=== PATIENT | female | born 1985 | race Hispanic/Latino ===

== ENCOUNTER 2018-04-01 00:40 | Emergency (ER) | payer OTHER ==
--- NOTE | 2018-04-01 01:00 | C.PDOC ---
History Of Present Illness 32 year old female presents to the ER with a complaint of cough, congestion, and ear pain for the past few days. Patient states she recently traveled and while on the plane felt more severe pain on the left ear and feels like she cannot hear out of it. Denies fever. Time Seen by Provider: 04/01/18 00:52 Chief Complaint (Nursing): Flu-like Symptoms History Per: Patient History/Exam Limitations: no limitations Onset/Duration Of Symptoms: Days Current Symptoms Are (Timing): Still Present Location Of Pain: Ear(s) Sick Contacts (Context): None Associated Symptoms: Cough, Nasal Congestion. denies: Fever Ear Symptoms: Left: Ear Pain, Decreased Hearing Recent travel outside of the [place]: No Past Medical History Reviewed: Historical Data, Nursing Documentation, Vital Signs Vital Signs: Last Vital Signs Temp 98.9 F 04/01/18 00:48 Pulse 90 04/01/18 00:48 Resp 16 04/01/18 00:48 BP 130/70 04/01/18 00:48 Pulse Ox 96 04/01/18 00:48 Family History: States: Unknown Family Hx - Social History Hx Alcohol Use: No Hx Substance Use: No Review Of Systems Constitutional: Negative for: Fever ENT: Positive for: Ear Pain, Nose Congestion Respiratory: Positive for: Cough Gastrointestinal: Negative for: Vomiting Physical Exam - Physical Exam Appears: Non-toxic Skin: Normal Color, Warm, Dry Head: Atraumatic, Normacephalic Eye(s): bilateral: Normal Inspection Ear(s): Left: TM Erythema, Right: Normal Nose: Other (Congestion) Oral Mucosa: Moist Throat: Normal, No Erythema, No Exudate Neck: Normal, Supple Chest: Symmetrical, No Tenderness Cardiovascular: Rhythm Regular Respiratory: Normal Breath Sounds, No Rales, No Rhonchi, No Wheezing Gastrointestinal/Abdominal: Soft, No Tenderness Neurological/Psych: Oriented x3, Normal Speech ED Course And Treatment O2 Sat by Pulse Oximetry: 96 (Room air) Pulse Ox Interpretation: Normal Medical Decision Making Medical Decision Making: Motrin administered. Patient is resting comfortably in the ER in no acute distress, vitals are stable, will start on antibiotics and discharge home with Rx and instructions to follow up with PMD. Disposition Counseled Patient/Family Regarding: Need For Followup, Rx Given - Disposition Referrals: George Jacobs MD [Staff Provider] - Disposition: HOME/ ROUTINE Disposition Time: 00:58 Condition: GOOD Additional Instructions: Take antibiotic twice daily and be sure to finish taking all of antibiotic Take Motrin for pain every 6-8 hours as needed Follow up with your primary medical doctor or clinic in 2-5 days for further evaluation. Prescriptions: Amoxicillin 875 mg PO Q12 #20 tablet Instructions: Ear Infections (Otitis Media) Forms: [employer] (Korean) - POA Present On Arrival: None - Clinical Impression Clinical Impression: Otitis media, URI (upper respiratory infection) - PA / [employer] / Resident Statement MD/DO has reviewed & agrees with the documentation as recorded. - Scribe Statement The provider has reviewed the documentation as recorded by the Scribe Jeremy Louie All medical record entries made by the Suzetteibgoyo were at my direction and personally dictated by me. I have reviewed the chart and agree that the record accurately reflects my personal performance of the history, physical exam, medical decision making, and the department course for this patient. I have also personally directed, reviewed, and agree with the discharge instructions and disposition.
[2018-04-01 01:05] VITALS: BP 130/70; PULSE 90; RESP 16; TEMP 98.9; O2SAT 96
[2018-04-01] MEDS ORDERED: Amoxicillin-Clav 500-125 mg Tab PO ONE (01:16)
== END 2018-04-01 01:24 | disposition home or self-care (01) ==
LOC: C.ER 00:40
DX: H66.90 Otitis media, unspecified, unspecified ear (principal); J06.9 Acute upper respiratory infection, unspecified